=== PATIENT | male | born 1965 | race American Indian/Alaskan Native ===

== ENCOUNTER 2021-02-16 18:30 | Inpatient (IN) | payer OTHER, MEDICARE ==
[~2021-02-16] VITALS: Ht 165.1 cm; Wt 88.6 kg
[2021-02-16 19:27] LABS: Basophils # (auto) 0.1 10 ^3/uL (0-0.2); Basophils % (auto) 1.1 % (0.0-2.0); Eosinophils # (auto) 0.1 10 ^3/uL (0-0.8); Eosinophils % (auto) 1.4 % (0.0-7.0); Hematocrit 30.6 % (41.0-53.0); Hemoglobin 10.3 g/dL (13.5-17.5); Lymphocytes # (auto) 0.6 10 ^3/uL (0.4-5.4); Lymphocytes % (auto) 6.8 % (10.0-50.0); Mean Corpuscular Hemoglobin 30.4 pg (28.0-32.0); Mean Corpuscular Hgb Conc. 33.5 g/dL (32.0-36.0); Mean Corpuscular Volume 90.7 fL (80.0-100.0); Monocytes # (auto) 0.5 10 ^3/uL (0-1.3); Monocytes % (auto) 5.8 % (0.0-12.0); Neutrophils # (auto) 7.9 10 ^3/uL (1.6-8.6); Neutrophils % (auto) 84.9 % (37.0-80.0); Nucleated Red Blood Cells % 0.2 %; Platelet Count (auto) 213 10^3/uL (140-450); Red Blood Cells 3.38 10^6/uL (4.5-5.90); Red Cell Distribution Width 17.1 % (11.8-14.3); White Blood Cell 9.3 10^3/uL (4.4-10.8)
[2021-02-16 19:38] LABS: Albumin 3.6 g/dL (3.4-5.0); BUN/Creatinine Ratio 5.5; Calcium 9.1 mg/dL (8.5-10.1); Potassium 4.4 mmol/L (3.5-5.1)
[2021-02-16 19:40] LABS: Magnesium 2.9 mg/dL (1.6-2.6); Phosphorus 3.9 mg/dL (2.5-4.90)
[2021-02-16 19:41] LABS: Bilirubin, Total 0.5 mg/dL (0.2-1.0); Total Protein 8.5 g/dL (6.4-8.2)
[2021-02-16] MEDS ORDERED: DEXTROSE (50%) 50ML SYRG IV PRN (21:45)
[2021-02-16] MEDS ORDERED: NITROGLYCERIN 0.4 MG SL TAB SL PRN (21:45)
[2021-02-16] MEDS ORDERED: ONDANSETRON HCL 4 MG/2 ML VIAL IV PRN (21:45)
[2021-02-16] MEDS ORDERED: TEMAZEPAM 15 MG CAP PO PRN (21:45)
[2021-02-16] MEDS ORDERED: ACETAMINOPHEN 325 MG TAB PO PRN (21:45)
[2021-02-16] MEDS ORDERED: MORPHINE SULF INJ 2 MG/ML SYRINGE 1ML IV PRN (21:45)
[2021-02-16] MEDS: hydrALAZINE HCL 25 MG TAB PO SCH (22:00)
[2021-02-16] MEDS: ACCU-CHEK COMFORT CURVE STRIP VI SCH (22:30)
[2021-02-16] MEDS: InsuLIN REG 1unit/0.01ml Soln (100units/ml) SC SCH (22:30)
[2021-02-17] VITALS (7 sets, daily range): BP systolic 132–158; BP diastolic 71–82
[2021-02-17] MEDS ORDERED: NIFE90TA49 PO (02:44)
[2021-02-17] MEDS ORDERED: SEVE800T8 PO (02:44)
[2021-02-17] MEDS ORDERED: B-COTAB10 OR (02:44)
[2021-02-17] MEDS ORDERED: LOSA-39 PO (02:44)
[2021-02-17] MEDS ORDERED: LORA0.5T20 PO (02:44)
[2021-02-17] MEDS ORDERED: INSU1INJ19 SC ×2 (02:44)
[2021-02-17] MEDS ORDERED: CARV25TA55 PO (02:44)
[2021-02-17] MEDS ORDERED: TRAZ50TA2 PO (02:44)
[2021-02-17 06:04] LABS: Basophils # (auto) 0.1 10 ^3/uL (0-0.2); Eosinophils # (auto) 0.2 10 ^3/uL (0-0.8); Hematocrit 30.1 % (41.0-53.0); Hemoglobin 10.3 g/dL (13.5-17.5); Lymphocytes # (auto) 0.5 10 ^3/uL (0.4-5.4); Lymphocytes % (auto) 5.9 % (10.0-50.0); Mean Corpuscular Hgb Conc. 34.2 g/dL (32.0-36.0); Mean Corpuscular Volume 90.6 fL (80.0-100.0); Monocytes # (auto) 0.4 10 ^3/uL (0-1.3); Monocytes % (auto) 4.7 % (0.0-12.0); Neutrophils # (auto) 7.7 10 ^3/uL (1.6-8.6); Neutrophils % (auto) 86.4 % (37.0-80.0); Nucleated Red Blood Cells % 0.2 %; Platelet Count (auto) 211 10^3/uL (140-450); Red Blood Cells 3.32 10^6/uL (4.5-5.90); Red Cell Distribution Width 17.3 % (11.8-14.3)
[2021-02-17 06:06] LABS: Potassium 4.4 mmol/L (3.5-5.1)
[2021-02-17 06:08] LABS: BUN/Creatinine Ratio 5.7
[2021-02-17] MEDS ORDERED: ALBUTEROL SULF 2.5 MG/0.5ML(0.5%) NEB SOLN NEB ONE (06:15)
[2021-02-17] MEDS: ACCU-CHEK COMFORT CURVE STRIP VI SCH ×4 (06:49→22:10)
[2021-02-17] MEDS: hydrALAZINE HCL 25 MG TAB PO SCH (06:49)
[2021-02-17] MEDS: InsuLIN REG 1unit/0.01ml Soln (100units/ml) SC SCH ×4 (06:52→22:12)
[2021-02-17] MEDS: SEVELAMER 800 MG TAB PO SCH ×3 (08:45→17:38)
[2021-02-17] MEDS: PANTOPRAZOLE 40 MG TAB PO SCH (08:45)
[2021-02-17] MEDS: LOSARTAN POTASSIUM 50 MG TAB PO SCH (08:45)
[2021-02-17] MEDS: NIFEdipine ER 30 MG TAB PO SCH (08:46)
[2021-02-17] MEDS ORDERED: ALBUTEROL SULF 2.5 MG/0.5ML(0.5%) NEB SOLN NEB PRN (12:00)
[2021-02-17] MEDS ORDERED: hydrALAZINE HCL 20 MG/ML VL IV PRN (13:15)
[2021-02-17] MEDS: IPRATROPIUM BROM 0.5 MG/2.5ML INH SOL NEB PRN (19:35)
[2021-02-17] MEDS: ALBUTEROL SULF 2.5 MG/0.5ML(0.5%) NEB SOLN NEB PRN (19:35)
[2021-02-17] MEDS: CARVEDILOL 12.5 MG TAB PO SCH (22:10)
[2021-02-18 02:24] VITALS: BP 123/82
[2021-02-18 05:00] VITALS: BP 127/57
[2021-02-18 05:29] LABS: Basophils # (auto) 0 10 ^3/uL (0-0.2); Eosinophils # (auto) 0.2 10 ^3/uL (0-0.8); Eosinophils % (auto) 1.9 % (0.0-7.0); Hemoglobin 9.4 g/dL (13.5-17.5); Lymphocytes # (auto) 0.4 10 ^3/uL (0.4-5.4); Lymphocytes % (auto) 4.4 % (10.0-50.0); Mean Corpuscular Hemoglobin 31.5 pg (28.0-32.0); Mean Corpuscular Hgb Conc. 34.7 g/dL (32.0-36.0); Mean Corpuscular Volume 90.9 fL (80.0-100.0); Monocytes # (auto) 0.4 10 ^3/uL (0-1.3); Monocytes % (auto) 4.3 % (0.0-12.0); Neutrophils # (auto) 8.2 10 ^3/uL (1.6-8.6); Neutrophils % (auto) 89.4 % (37.0-80.0); Platelet Count (auto) 182 10^3/uL (140-450); Red Blood Cells 2.97 10^6/uL (4.5-5.90); Red Cell Distribution Width 17.4 % (11.8-14.3); White Blood Cell 9.1 10^3/uL (4.4-10.8)
[2021-02-18 05:53] LABS: Potassium 5.1 mmol/L (3.5-5.1)
[2021-02-18 06:03] LABS: Albumin 3.4 g/dL (3.4-5.0); BUN/Creatinine Ratio 5.7; Bilirubin, Total 0.5 mg/dL (0.2-1.0); Magnesium 3.2 mg/dL (1.6-2.6); Total Protein 7.3 g/dL (6.4-8.2)
[2021-02-18] MEDS: InsuLIN REG 1unit/0.01ml Soln (100units/ml) SC SCH ×2 (07:00→11:30)
[2021-02-18] MEDS ORDERED: SODIUM CHL 0.9% 1000 ML BAG XX ONE (07:00)
[2021-02-18] MEDS: ACCU-CHEK COMFORT CURVE STRIP VI SCH ×2 (07:00→11:30)
[2021-02-18] MEDS: IPRATROPIUM BROM 0.5 MG/2.5ML INH SOL NEB PRN ×2 (07:16→12:25)
[2021-02-18] MEDS: ALBUTEROL SULF 2.5 MG/0.5ML(0.5%) NEB SOLN NEB PRN ×2 (07:16→12:25)
[2021-02-18 08:20] VITALS: BP 147/82
[2021-02-18 08:24] VITALS: BP 147/82
[2021-02-18] MEDS: PANTOPRAZOLE 40 MG TAB PO SCH (09:13)
[2021-02-18] MEDS: SEVELAMER 800 MG TAB PO SCH ×2 (09:13→12:00)
[2021-02-18] MEDS: LOSARTAN POTASSIUM 50 MG TAB PO SCH (10:00)
[2021-02-18] MEDS: CARVEDILOL 12.5 MG TAB PO SCH (10:00)
[2021-02-18] MEDS: NIFEdipine ER 30 MG TAB PO SCH (10:00)
[2021-02-18 12:36] VITALS: BP 156/83
[2021-02-18 14:56] VITALS: BP 123/82
== END 2021-02-18 16:45 | disposition left against medical advice (07) | DRG 280 ==
LOC: ER 18:30 → TELE 21:40 → TELE-WESTW 23:16
PROVIDERS: ADMIT Nurse Practitioner; ATTEND Internal Medicine
PROC: 5A1D70Z Performance of Urinary Filtration, Intermittent, Less than 6 Hours Per Day (ICD-10-PCS; principal; 2021-02-18)
DX: I13.2 Hypertensive heart and chronic kidney disease with heart failure and with stage 5 chronic kidney disease, or end stage renal disease (principal); I50.33 Acute on chronic diastolic (congestive) heart failure; I21.A1 Myocardial infarction type 2; J96.00 Acute respiratory failure, unspecified whether with hypoxia or hypercapnia; N18.6 End stage renal disease; N25.81 Secondary hyperparathyroidism of renal origin; J91.8 Pleural effusion in other conditions classified elsewhere; Z53.29 Procedure and treatment not carried out because of patient's decision for other reasons; D63.1 Anemia in chronic kidney disease; E66.9 Obesity, unspecified; E83.39 Other disorders of phosphorus metabolism; Z99.2 Dependence on renal dialysis; Z79.4 Long term (current) use of insulin; Z87.891 Personal history of nicotine dependence; Z68.32 Body mass index [BMI] 32.0-32.9, adult; Z20.822 Contact with and (suspected) exposure to COVID-19
CPT/HCPCS: 36415; 36600; 71045; 80048; 80053; 80061; 82805; 82962; 83036; 83735; 83880; 84100; 84443; 84484; 85025; 85049; 87340; 87426; 90935; 93005; 93306; 94640; G0378; J1815